=== PATIENT | female | born 1990 | race Two or more races ===

== ENCOUNTER 2020-03-21 08:33 | Inpatient (IN) | payer BC ==
[2020-03-21] MEDS ORDERED: Methylergonovine 0.2 MG/1 ML Amp IM PRN ×2 (09:49→12:30)
[2020-03-21] MEDS ORDERED: Butorphanol 1 MG/ML SDV IVPUSH PRN (09:49)
[2020-03-21] MEDS ORDERED: Sodium Chloride 0.9% 2.5 ML Syringe FLUSH PRN (09:49)
[2020-03-21] MEDS ORDERED: Misoprostol 200 MCG Tab PO PRN (09:49)
[2020-03-21] MEDS ORDERED: Nalbuphine 10 MG/1 ML Vial IVPUSH PRN (09:49)
[2020-03-21] MEDS ORDERED: Carboprost Tromethamine 250 MCG/1 ML Amp IM PRN (09:49)
[2020-03-21] MEDS ORDERED: Lidocaine 1% 50 ML MDV INJECT PRN (09:49)
[2020-03-21] MEDS ORDERED: Tranexamic Acid 1,000 MG in Sodium Chloride 0.9% 100 ML IV PRN (09:49)
[2020-03-21] MEDS ORDERED: Water For Irrigation,Sterile 1,000 ML Container IRR PRN (09:49)
[2020-03-21] MEDS ORDERED: Sodium Chloride 0.9% 10 ML Syringe FLUSH PRN (09:49)
[2020-03-21] MEDS ORDERED: Sodium Chloride 0.9% 10 ML SDV IV PRN (09:49)
[2020-03-21] MEDS ORDERED: Oxytocin/0.9 % Sodium Chloride 30 UNIT/500 ML BAG IV SCH (10:00)
[2020-03-21] MEDS ORDERED: Lactated Ringers 1,000 ML IV SCH (10:00)
--- NOTE | 2020-03-21 12:29 | PCM.DEL ---
L & D Note - General Info Date of Service: 03/21/20 Mother's Due Date: 03/23/20 - Delivery Note Labor: Spontaneous, Augmented by ARM Delivery Outcome: Livebirth Delivery Method: Spontaneous Vaginal Delivery-Single Presentation: Left Occiput Anterior (ANJEL) Nuchal Cord: Present, Reduced Prep: Other Anesthesia Type: None Episiotomy Type: None Laceration: None Placenta: Intact, Spontaneous Cord: 3 Vessels Estimated Blood Loss: 300 Resuscitation Needed: No Buckner: Suctioned Score 1 min: 8 Score 5 min: 9 Delivery Comments (Free Text/Narrative):: Liveborn male 8/9 weight 4120 grams. - General Info Date of Service: 03/21/20 - Patient Data Weight - Most Recent: 72.121 kg Lab Results Last 24 Hours: Laboratory Results - last 24 hr 03/21/20 03/21/20 03/21/20 Range/Units 09:40 11:08 11:08 WBC 13.26 H (4.0-11.0) K/uL RBC 4.77 (4.30-5.90) M/uL Hgb 10.6 L (12.0-16.0) g/dL Hct 34.9 L (36.0-46.0) % MCV 73.2 L (80.0-98.0) fL MCH 22.2 L (27.0-32.0) pg MCHC 30.4 L (31.0-37.0) g/dL RDW Std Deviation 42.2 (28.0-62.0) fl RDW Coeff of Christophe 16 H (11.0-15.0) % Plt Count 215 (150-400) K/uL Nucleated RBC % 0.0 /100WBC Nucleated RBCs # 0 K/uL SARS-CoV-2 RNA (RT-PCR) NEGATIVE (NEGATIVE) Blood Type O POSITIVE Antibody Screen NEGATIVE Med Orders - Current: Current Medications Butorphanol Tartrate (Stadol) 1 mg IVPUSH Q1H PRN PRN Reason: Pain Carboprost Tromethamine (Hemabate Ds) 250 mcg IM ASDIRECTED PRN PRN Reason: Post Hemorrhage Lactated Ringer's (Ringers, Lactated) 1,000 mls @ 150 mls/hr IV ASDIRECTED JOSHUA Oxytocin/Sodium Chloride (Oxytocin 30 Unit/500 Ml-Ns) 30 unit in 500 mls @ 500 mls/hr IV TITRATE JOSHUA Tranexamic Acid 1,000 mg/ (Sodium Chloride) 110 mls @ 660 mls/hr IV ONETIME PRN PRN Reason: Bleeding Lidocaine HCl (Xylocaine 1%) 50 ml INJECT ONETIME PRN PRN Reason: Laceration repair Methylergonovine Maleate (Methergine) 0.2 mg IM ASDIRECTED PRN PRN Reason: Post Hemorrhage Misoprostol (Cytotec) 200 mcg PO ONETIME PRN PRN Reason: Post Hemorrhage Nalbuphine HCl (Nubain) 10 mg IVPUSH Q1H PRN PRN Reason: Pain (severe 7-10) Sodium Chloride (Saline Flush) 10 ml FLUSH ASDIRECTED PRN PRN Reason: Keep Vein Open Sodium Chloride (Saline Flush) 2.5 ml FLUSH ASDIRECTED PRN PRN Reason: Keep Vein Open Sodium Chloride (Normal Saline) 10 ml IV ASDIRECTED PRN PRN Reason: IV Use Sterile Water (Sterile Water For Irrigation) 1,000 ml IRR ASDIRECTED PRN PRN Reason: delivery - Problem List Review Problem List Initiated/Reviewed/Updated: Yes - My Orders Last 24 Hours: My Active Orders 03/21/20 09:25 RPR (SYPHILIS SERO) W/ RFLX [REF] Routine 03/21/20 09:49 Patient Status [ADT] Routine Heart Tones [RC] CONTINUOUS Non Stress Test [RC] PER UNIT ROUTINE May Shower [RC] ASDIRECTED Notify Provider [RC] PRN Up ad Elisa [RC] ASDIRECTED Vaginal Exam [RC] PRN Vital Signs [RC] PER UNIT ROUTINE Butorphanol [Stadol] 1 mg IVPUSH Q1H PRN Carboprost Tromethamine [Hemabate DS] 250 mcg IM ASDIRECTED PRN Lidocaine 1% [Xylocaine 1%] 50 ml INJECT ONETIME PRN Methylergonovine [Methergine] 0.2 mg IM ASDIRECTED PRN Nalbuphine [Nubain] 10 mg IVPUSH Q1H PRN Sodium Chloride 0.9% [Normal Saline] 10 ml IV ASDIRECTED PRN Sodium Chloride 0.9% [Saline Flush] 10 ml FLUSH ASDIRECTED PRN Sodium Chloride 0.9% [Saline Flush] 2.5 ml FLUSH ASDIRECTED PRN Tranexamic Acid [Cyklokapron] 1,000 mg Sodium Chloride 0.9% [Normal Saline] 100 ml IV ONETIME Water For Irrigation,Sterile [Sterile Water for Irrigation] 1,000 ml IRR ASDIRECTED PRN miSOPROStoL [Cytotec] 200 mcg PO ONETIME PRN Scalp Electrode [WOMSER] Per Unit Routine Peripheral IV Insertion Adult [OM.PC] Routine Resuscitation Status Routine 03/21/20 10:00 Lactated Ringers [Ringers, Lactated] 1,000 ml IV ASDIRECTED Oxytocin/0.9 % Sodium Chloride [Oxytocin 30 Unit/500 ML-NS] 30 unit in 500 ml IV TITRATE
[2020-03-21] MEDS ORDERED: Benzocaine/Menthol 20%-0.5% Spray 78 GM Cannister TOP PRN (12:30)
[2020-03-21] MEDS ORDERED: Bisacodyl 10 MG Supp RECTAL PRN (12:30)
[2020-03-21] MEDS ORDERED: Docusate Sodium 100 MG Cap PO PRN (12:30)
[2020-03-21] MEDS ORDERED: Lanolin 100% Cream 7 GM Tube TOP PRN (12:30)
[2020-03-21] MEDS ORDERED: Witch Hazel Medicated Pads 40/Jar TOP PRN (12:30)
[2020-03-21] MEDS ORDERED: Ibuprofen 400 MG Tab PO PRN (12:30)
[2020-03-21] MEDS ORDERED: Acetaminophen 500 MG Tab PO PRN ×2 (12:30)
--- NOTE | 2020-03-21 12:52 | OR ---
SURGEON: Anila Meehan M.D. DATE OF PROCEDURE: 03/21/2020 PREOPERATIVE DIAGNOSES: A 39-5/7-week intrauterine , active spontaneous labor, suspected macrosomia. POSTOPERATIVE DIAGNOSES: A 39-5/7-week intrauterine , active spontaneous labor, suspected macrosomia. PROCEDURE: Artificial rupture of membranes, term spontaneous vaginal delivery. ANESTHESIA: None. ESTIMATED BLOOD LOSS: Less than 300 mL. FINDINGS: Liveborn male, scores of 8 and 9, weighing 4120 g. Intact perineum. COMPLICATIONS: None known. DISPOSITION: Mother and baby are in LDR, in good condition. BRIEF HISTORY OF PRESENT ILLNESS: This is a 29-year-old female, G4, P2-0-1-2. She presents at 39-5/7 weeks gestation in active spontaneous labor, category 1 heart tones. She was admitted to Labor and Delivery. She had COVID testing which was negative. She was noted to be group B strep negative. She progressed to 9 cm. At this time, artificial rupture of membranes was performed with clear fluid noted. Within 30 minutes, she progressed to complete. DESCRIPTION OF PROCEDURE: With the patient in the dorsal lithotomy position, the patient pushed over 2 contractions to 5+ station, at which time the head was delivered spontaneously and atraumatically over the perineum with support, with subsequent delivery of the 's shoulders and body without any difficulty. Nuchal cord x1 was reduced. The infant was bulb suctioned by nose and mouth and the was handed to the mother in the presence of nurse attending delivery. The was a liveborn male, scores 8 and 9, weighing 4120 g. After the cord had ceased to pulsate, it was doubly clamped and cut. Cord blood was collected for cord ABGs as well as routine cord blood sampling. Pitocin was initiated after delivery of the to assist with delivery of the placenta which was delivered spontaneously, John intact, with 3 vessels. Upon inspection of the pelvis and perineum, there were no periurethral, vaginal sidewall, cervical, rectal, or perineal lacerations. EBL was less than 300 mL. There were no known complications. Mother and baby remained in LDR in good condition. MAKENZIE / BEAU /[id number]
[2020-03-21] MEDS: Ibuprofen 800 MG Tab PO PRN (14:21)
[2020-03-22] MEDS: Ibuprofen 800 MG Tab PO PRN (02:48)
--- NOTE | 2020-03-22 08:41 | PCM.PNPP ---
- General Info Date of Service: 03/22/20 Functional Status: Reports: Pain Controlled, Tolerating Diet, Ambulating, Urinating - Review of Systems General: Reports: No Symptoms HEENT: Reports: No Symptoms Pulmonary: Reports: No Symptoms Cardiovascular: Reports: No Symptoms Gastrointestinal: Reports: No Symptoms Genitourinary: Reports: No Symptoms Musculoskeletal: Reports: No Symptoms Skin: Reports: No Symptoms Neurological: Reports: No Symptoms Psychiatric: Reports: No Symptoms - Patient Data Vital Signs - Most Recent: Last Vital Signs Temp 36.1 C 03/22/20 07:57 Pulse 79 03/22/20 07:57 Resp 16 03/22/20 07:57 BP 109/57 L 03/22/20 07:57 Pulse Ox 99 03/22/20 07:57 Weight - Most Recent: 72.121 kg Lab Results - Last 24 Hours: Laboratory Results - last 24 hr 03/21/20 03/21/20 03/21/20 Range/Units 09:40 11:08 11:08 WBC 13.26 H (4.0-11.0) K/uL RBC 4.77 (4.30-5.90) M/uL Hgb 10.6 L (12.0-16.0) g/dL Hct 34.9 L (36.0-46.0) % MCV 73.2 L (80.0-98.0) fL MCH 22.2 L (27.0-32.0) pg MCHC 30.4 L (31.0-37.0) g/dL RDW Std Deviation 42.2 (28.0-62.0) fl RDW Coeff of Christophe 16 H (11.0-15.0) % Plt Count 215 (150-400) K/uL Nucleated RBC % 0.0 /100WBC Nucleated RBCs # 0 K/uL Cord ABG pH (7.18-7.38) Cord ABG Base Excess (-10--2) Cord VBG pH (7.25-7.45) Cord VBG Base Excess (-10--2) SARS-CoV-2 RNA (RT-PCR) NEGATIVE (NEGATIVE) Blood Type O POSITIVE Antibody Screen NEGATIVE 03/21/20 03/22/20 Range/Units 12:14 06:00 WBC (4.0-11.0) K/uL RBC (4.30-5.90) M/uL Hgb 8.9 L (12.0-16.0) g/dL Hct 30.5 L (36.0-46.0) % MCV (80.0-98.0) fL MCH (27.0-32.0) pg MCHC (31.0-37.0) g/dL RDW Std Deviation (28.0-62.0) fl RDW Coeff of Christophe (11.0-15.0) % Plt Count (150-400) K/uL Nucleated RBC % /100WBC Nucleated RBCs # K/uL Cord ABG pH 7.304 (7.18-7.38) Cord ABG Base Excess -3 (-10--2) Cord VBG pH 7.326 (7.25-7.45) Cord VBG Base Excess -5 (-10--2) SARS-CoV-2 RNA (RT-PCR) (NEGATIVE) Blood Type Antibody Screen Med Orders - Current: Current Medications Acetaminophen (Tylenol Extra Strength) 500 mg PO Q4H PRN PRN Reason: Pain Acetaminophen (Tylenol Extra Strength) 1,000 mg PO Q4H PRN PRN Reason: Pain Benzocaine/Menthol (Dermoplast Pain Relief 20%-0.5% [place]) 78 gm TOP ASDIRECTED PRN PRN Reason: Perineal Comfort Measure Bisacodyl (Dulcolax) 10 mg RECTAL ONETIME PRN PRN Reason: Constipation Docusate Sodium (Colace) 100 mg PO BID PRN PRN Reason: Constipation Last Admin: 03/22/20 07:56 Dose: 100 mg Emollient Ointment (Lansinoh Hpa) 0 gm TOP ASDIRECTED PRN PRN Reason: Sore Nipples Ibuprofen (Motrin) 400 mg PO Q4H PRN PRN Reason: Pain Ibuprofen (Motrin) 800 mg PO Q6H PRN PRN Reason: Pain Last Admin: 03/22/20 02:48 Dose: 800 mg Methylergonovine Maleate (Methergine) 0.2 mg IM ONETIME PRN PRN Reason: Excessive Vaginal Bleeding Witch Jocelyne (Tucks) 1 pad TOP ASDIRECTED PRN PRN Reason: comfort care Discontinued Medications Butorphanol Tartrate (Stadol) 1 mg IVPUSH Q1H PRN PRN Reason: Pain Carboprost Tromethamine (Hemabate Ds) 250 mcg IM ASDIRECTED PRN PRN Reason: Post Hemorrhage Lactated Ringer's (Ringers, Lactated) 1,000 mls @ 150 mls/hr IV ASDIRECTED JOSHUA Oxytocin/Sodium Chloride (Oxytocin 30 Unit/500 Ml-Ns) 30 unit in 500 mls @ 500 mls/hr IV TITRATE JOSHUA Last Infusion: 03/21/20 12:35 Dose: 250 mls/hr Tranexamic Acid 1,000 mg/ (Sodium Chloride) 110 mls @ 660 mls/hr IV ONETIME PRN PRN Reason: Bleeding Lidocaine HCl (Xylocaine 1%) 50 ml INJECT ONETIME PRN PRN Reason: Laceration repair Methylergonovine Maleate (Methergine) 0.2 mg IM ASDIRECTED PRN PRN Reason: Post Hemorrhage Misoprostol (Cytotec) 200 mcg PO ONETIME PRN PRN Reason: Post Hemorrhage Nalbuphine HCl (Nubain) 10 mg IVPUSH Q1H PRN PRN Reason: Pain (severe 7-10) Sodium Chloride (Saline Flush) 10 ml FLUSH ASDIRECTED PRN PRN Reason: Keep Vein Open Sodium Chloride (Saline Flush) 2.5 ml FLUSH ASDIRECTED PRN PRN Reason: Keep Vein Open Last Admin: 03/21/20 12:13 Dose: 2.5 ml Sodium Chloride (Normal Saline) 10 ml IV ASDIRECTED PRN PRN Reason: IV Use Sterile Water (Sterile Water For Irrigation) 1,000 ml IRR ASDIRECTED PRN PRN Reason: delivery Last Admin: 03/21/20 12:00 Dose: 1,000 ml - Interaction Disposition, : at Bedside Feeding: Attempted ; Nursed Fair/Poor, Bottle Fed Infant Support Person: - Recovery Exam Fundal Tone: Firms with Massage Fundal Level: 1 Fingerbreadths Below Umbilicus Fundal Placement: Midline Lochia Amount: Small Lochia Color: Rubra/Red Bladder Status: Voiding Urinary Elimination: Voided - Exam General: Alert, Oriented Neck: Supple Lungs: Normal Respiratory Effort Extremities: No Pedal Edema Skin: Warm, Dry, Intact Neurological: No New Focal Deficit Psy/Mental Status: Alert, Normal Affect, Normal Mood - Problem List & Annotations (1) Vaginal delivery SNOMED Code(s): 522920570 Code(s): O80 - ENCOUNTER FOR FULL-TERM UNCOMPLICATED DELIVERY Status: Acute Current Visit: Yes - Problem List Review Problem List Initiated/Reviewed/Updated: Yes - My Orders Last 24 Hours: My Active Orders 03/22/20 08:40 Ready for Discharge [RC] PER UNIT ROUTINE - Assessment Assessment:: 29yo P3 s/p , PPD#1 - Plan Plan:: Desires discharge home today. Reviewed discharge instructions, all questions answered.
== END 2020-03-22 15:20 | disposition home or self-care (01) | DRG 560 ==
LOC: MW.OBCHECK 08:33 → MW.OB 08:34 → MW.OBCHECK 09:48 → MW.OB 09:49 → OBSVTOIN 12:11 → MW.OB 17:19
PROVIDERS: ADMIT Obstetrics & Gynecology; ATTEND Obstetrics & Gynecology
PROC: 10E0XZZ Delivery of Products of Conception, External Approach (ICD-10-PCS; principal; 2020-03-21)
PROC: 10907ZC Drainage of Amniotic Fluid, Therapeutic from Products of Conception, Via Natural or Artificial Opening (ICD-10-PCS; 2020-03-21)
DX: O69.81X0 Labor and delivery complicated by cord around neck, without compression, not applicable or unspecified (principal); Z3A.39 39 weeks gestation of pregnancy; Z37.0 Single live birth; O76 Abnormality in fetal heart rate and rhythm complicating labor and delivery; O36.63X0 Maternal care for excessive fetal growth, third trimester, not applicable or unspecified; Z20.828 Contact with and (suspected) exposure to other viral communicable diseases
CPT/HCPCS: 36415; 59025; 59409; 82803; 85014; 85018; 85027; 86592; 86593; 86850; 86900; 86901; A9270-GY; J2590; U0002

== ENCOUNTER 2022-03-17 20:00 | Emergency (ER) | payer BC ==
[2022-03-17] MEDS ORDERED: oxyCODONE 5 MG Tab PO ONE (20:39)
== END 2022-03-17 21:18 | disposition home or self-care (01) ==
LOC: MW.ED 20:00
DX: R10.9 Unspecified abdominal pain (principal); B02.9 Zoster without complications; Z79.899 Other long term (current) drug therapy
CPT/HCPCS: 93005; 99283; A9270; 93010

== ENCOUNTER 2024-06-28 04:51 | Emergency (ER) | payer BC ==
[2024-06-28 05:07] LABS: APPEARANCE,URINE CLEAR; BILIRUBIN,URINE NEGATIVE (NEGATIVE); COLOR,URINE YELLOW; GLUCOSE,URINE NEGATIVE (NEGATIVE); KETONES,URINE NEGATIVE (NEGATIVE); LEUKOCYTE ESTERASE,URINE NEGATIVE (NEGATIVE); NITRITE,URINE NEGATIVE (NEGATIVE); OCCULT BLOOD,URINE MODERATE (NEGATIVE); PROTEIN,URINE NEGATIVE (NEGATIVE); UROBILINOGEN,URINE 0.2 EU/dL (<2.0)
[2024-06-28] MEDS: Sodium Chloride 0.9% 1,000 ML IV ONE (05:10)
[2024-06-28] MEDS: Sodium Chloride 0.9% 10 ML Syringe FLUSH PRN (05:10)
[2024-06-28 05:17] LABS: BASOPHILS PERCENT AUTO 0.8 % (0.0-1.0); EOSINOPHILS ABSOLUTE AUTO 0.81 K/uL (0.00-0.45); EOSINOPHILS PERCENT AUTO 6.5 % (0.0-6.0); HEMATOCRIT 39.6 % (37.0-47.0); HEMOGLOBIN 13.3 g/dL (12.0-16.0); IMMATURE GRAN ABSOLUTE AUTO 0.12 K/uL (0.00-0.05); LYMPHOCYTES PERCENT AUTO 19.4 % (24.0-44.0); MEAN CORPUSCULAR HGB CONC 33.6 g/dL (32.0-36.0); MEAN CORPUSCULAR VOLUME 86.5 fL (83.0-99.0); MEAN PLATELET VOLUME 10.7 fL (9.4-12.3); MONOCYTES ABSOLUTE AUTO 0.93 K/uL (0.00-0.80); MONOCYTES PERCENT AUTO 7.5 % (0.0-8.0); NEUTROPHILS ABSOLUTE AUTO 8.01 K/uL (1.80-7.70); NEUTROPHILS PERCENT AUTO 64.8 % (41.0-71.0); PLATELET COUNT,PLT 303 K/uL (150-400); RED BLOOD CELL COUNT 4.58 M/uL (4.10-5.30); WHITE BLOOD CELL COUNT,WBC 12.37 K/uL (3.9-11.3)
[2024-06-28 05:20] LABS: BACTERIA,URINE RARE (NEGATIVE); EPITHELIAL CELLS,URINE RARE (NONE-FEW); MUCUS,URINE FEW (NONE-MOD); WBC,URINE 0-1 (0-5/HPF)
[2024-06-28] MEDS: Ondansetron 4 MG/2 ML SDV IVPUSH ONE (05:21)
[2024-06-28] MEDS: HYDROmorphone 0.5 MG/0.5 ML Syringe IVPUSH ONE (05:22)
[2024-06-28 05:44] LABS: BILIRUBIN TOTAL 0.3 mg/dL (0.2-1.0); C-REACTIVE PROTEIN 0.26 mg/dL (<0.3); CREATININE 0.7 mg/dL (0.6-1.0); EST CRCL DRUG DOSING (CG) 88.72 mL/min; POTASSIUM,K 3.4 mmol/L (3.5-5.1)
== END 2024-06-28 08:55 | disposition home or self-care (01) ==
LOC: MW.ED 04:51
DX: K80.20 Calculus of gallbladder without cholecystitis without obstruction (principal); D72.829 Elevated white blood cell count, unspecified
CPT/HCPCS: 36415; 76705; 80053; 81001; 83605; 83690; 84703; 85025; 85652; 86140; 96361; 96374; 96375; 99284; J1170; J2405; J3490; J7030

== ENCOUNTER 2024-07-14 06:30 | Day surgery (SDC) | payer BC ==
[~2024-07-14 06:30] MED LIST: ceFAZolin 2 GM in Sodium Chloride 0.9% 50 ML IV ONE
[2024-07-14] MEDS: Lactated Ringers 1,000 ML IV SCH (07:11)
[2024-07-14] MEDS ORDERED: Bupivacaine 0.5% 30 ML SDV ONE (07:17)
[2024-07-14] MEDS ORDERED: propofoL 50 ML ONE ×2 (07:35→08:51)
[2024-07-14] MEDS ORDERED: Propofol 200 MG/20 ML SDV ONE (07:35)
[2024-07-14] MEDS ORDERED: fentaNYL 250 MCG/5 ML SDV ONE (07:35)
[2024-07-14] MEDS ORDERED: Ketamine HCL/NACL, ISO-OSM 50 MG/5 ML Syringe ONE (07:36)
[2024-07-14] MEDS ORDERED: Water For Injection, Sterile 20 ML ONE (07:37)
[2024-07-14] MEDS ORDERED: dexmedeTOMIDine HCl 200 MCG/2 ML SDV ONE (07:37)
[2024-07-14] MEDS ORDERED: Ropivacaine 0.5% 5 MG/ML 30 ML SDV ONE (07:39)
[2024-07-14] MEDS ORDERED: Famotidine 20 MG/2 ML SDV ONE (07:39)
[2024-07-14] MEDS ORDERED: Albuterol 0.083% 2.5 MG/3 ML Neb Soln NEB PRN (07:51)
[2024-07-14] MEDS ORDERED: Metoclopramide 10 MG/2 ML SDV IVPUSH PRN (07:51)
[2024-07-14] MEDS ORDERED: Phenylephrine HCl In 0.9% NaCl 1 MG/10 ML Syringe IVPUSH PRN (07:51)
[2024-07-14] MEDS ORDERED: HYDROmorphone 1 MG/ML Syringe IVPUSH PRN (07:51)
[2024-07-14] MEDS ORDERED: Morphine 2 MG/ML SYRINGE IVPUSH PRN (07:51)
[2024-07-14] MEDS ORDERED: fentaNYL 50 MCG/ML SDV IVPUSH PRN (07:51)
[2024-07-14] MEDS ORDERED: Naloxone 0.4 MG/ML SDV IVPUSH PRN (07:51)
[2024-07-14] MEDS ORDERED: ceFAZolin 2 GM Vial ONE (08:15)
[2024-07-14] MEDS ORDERED: Indocyanine Green 25 MG SDV ONE (08:15)
[2024-07-14] MEDS ORDERED: Sugammadex Sodium 200 MG/2 ML VIAL IV ONE (08:29)
[2024-07-14] MEDS ORDERED: Ketorolac 30 MG/ML SDV ONE (08:29)
[2024-07-14] MEDS ORDERED: Dexamethasone 4 MG/ML 5 ML MDV ONE (09:26)
[2024-07-14] MEDS ORDERED: Ondansetron 4 MG/2 ML SDV ONE (09:26)
[2024-07-14] MEDS ORDERED: Rocuronium Bromide 50 MG/5 ML Syringe ONE (09:26)
[2024-07-14] MEDS ORDERED: Morphine 4 MG/ML Syringe IVPUSH PRN (09:51)
[2024-07-14] MEDS ORDERED: Acetaminophen/HYDROcodone 325-5 MG Tab PO PRN (09:51)
[2024-07-14] MEDS ORDERED: Lactated Ringers 1,000 ML IV SCH (10:00)
[2024-07-14] MEDS: Ondansetron 4 MG/2 ML SDV IVPUSH PRN (11:05)
== END 2024-07-14 12:15 | disposition home or self-care (01) ==
LOC: MW.SDS 06:30
PROVIDERS: ATTEND Surgery
DX: K80.10 Calculus of gallbladder with chronic cholecystitis without obstruction (principal)
CPT/HCPCS: 47563; 81025; J0131; J0665; J0690; J1100; J1885; J2405; J2704; J2795; J3010; J3490; J7120; 00790